=== PATIENT | male | born 1950 | race African-American/Black ===

== ENCOUNTER 2016-09-20 07:11 | Emergency (ER) | payer MEDICARE, MEDICAID ==
[~2016-09-20] VITALS: Ht 182.9 cm; Wt 118.0 kg
[2016-09-20] MEDS ORDERED: CYCLOBENZAPRINE 10MG TABLET PO ONE (08:15)
[2016-09-20] MEDS ORDERED: ACETAMINOPHEN 325MG TABLET PO ONE (08:15)
[2016-09-20 12:48] VITALS: BP 148/85
== END 2016-09-20 12:52 | disposition home or self-care (01) ==
LOC: ER 07:34
DX: M54.5 Low back pain (principal); G89.29 Other chronic pain; I11.0 Hypertensive heart disease with heart failure; I50.9 Heart failure, unspecified
CPT/HCPCS: 72110; 93971; 99284

== ENCOUNTER 2016-09-23 08:14 | Emergency (ER) | payer MEDICARE, MEDICAID ==
[~2016-09-23] VITALS: Ht 182.9 cm; Wt 86.0 kg
[2016-09-23] MEDS ORDERED: MORPHINE SULFATE 4 MG/ML CPJ (NOT FOR IM USE) IV STA (08:45)
[2016-09-23] MEDS ORDERED: ONDANSETRON HCL 4MG/2ML VIAL IV STA (08:45)
[2016-09-23 09:15] LABS: BASOPHILS % 0.3 % (0.0-2.0); DIFFERENTIAL COMMENT 0; EOSINOPHILS % 0.1 % (0.0-5.0); HEMATOCRIT. 43.5 % (42.0-52.0); HEMOGLOBIN. 14.3 g/dL (14.0-18.0); LYMPHOCYTES % 7.6 % (20.0-50.0); MEAN CORPUSCULAR HEMOGLOBIN 27.2 pg (28.0-32.0); MEAN CORPUSCULAR HGB CONC 32.9 g/dL (31.0-37.0); MEAN CORPUSCULAR VOLUME 82.7 fL (80.0-94.0); MEAN PLATELET VOLUME 9.4 fl (7.4-10.4); MONOCYTES % 7.5 % (2.0-8.0); NEUTROPHILS % 84.5 % (40.0-76.0); PLATELET 298 x1000/uL (130-400); RED BLOOD CELL COUNT 5.25 mill/uL (4.7-6.1); RED CELL DISTRIBUTION WIDTH 14.5 % (11.6-14.6); WHITE BLOOD COUNT 19.8 x1000/uL (4.5-11.0)
[2016-09-23 09:21] LABS: INR 1.1; PARTIAL THROMBOPLASTIN TIME 29.9 sec (24.0-34.0); PROTHROMBIN TIME 11.3 sec
[2016-09-23 09:25] LABS: ALANINE AMINOTRANSFERASE 36 IU/L (13-61); ALBUMIN 2.5 g/dL (3.4-5.0); ANION GAP 14; CARBON DIOXIDE 26 mEq/L (21-32); CHLORIDE 99 mEq/L (98-107); INDEX HEMOLYSI 1 (1-3); INDEX ICTERIC 1 (1-4); INDEX LIPEMIC 1 (1-3); LIPASE 158 IU/L (73-393); UREA NITROGEN BLOOD 16 mg/dL (7-21); eGFR > 60 mL/min (>60)
[2016-09-23 10:17] LABS: CLARITY URINE CLOUDY (CLEAR); COLOR URINE YELLOW (YELLOW); GLUCOSE URINE NEGATIVE (NEGATIVE); KETONES URINE 1+ (NEGATIVE); LEUKOCYTE ESTERASE URINE NEGATIVE (NEGATIVE); NITRITE URINE NEGATIVE (NEGATIVE); OCCULT BLOOD URINE 2+ (NEGATIVE); PH URINE 6.5 (4.5-8.0); PROTEIN URINE 2+ (NEGATIVE); SPECIFIC GRAVITY URINE 1.017 (1.005-1.030)
[2016-09-23 10:33] LABS: SQUAMOUS EPITHELIAL CELL URINE 2+ /lpf (RARE/1+)
[2016-09-23 10:34] LABS: HYALINE CASTS URINE 0-5 /lpf; MUCUS URINE 2+ /lpf (NONE/TRACE)
[2016-09-23 10:36] LABS: BACTERIA URINE 2+
[2016-09-23 15:30] VITALS: BP 181/99
== END 2016-09-23 16:00 | disposition home or self-care (01) ==
LOC: ER 08:22
DX: N39.0 Urinary tract infection, site not specified (principal); N40.0 Benign prostatic hyperplasia without lower urinary tract symptoms; K59.00 Constipation, unspecified; I10 Essential (primary) hypertension; I50.9 Heart failure, unspecified
CPT/HCPCS: 36415; 51702; 71010; 74177; 80053; 81001; 83690; 85025; 85610; 85730; 93005; 96374; 96375; 99285; J2270; J2405